=== PATIENT | female | born 1975 | race Caucasian/White ===

== ENCOUNTER 2018-03-09 16:50 | Emergency (ER) | payer OTHER ==
[~2018-03-09] VITALS: Ht 165.1 cm; Wt 81.7 kg
--- NOTE | ~2018-03-09 | EKG ---
[address] [address] ELECTROCARDIOGRAM REPORT Name: TEA MAGALLON Room #: [facility] Eloise#: [id number] Admission: 03/09/18 Attend Phys: Discharge: 03/09/18 Date of : 79 Report #: [id number] THIS REPORT FOR: //name// [facility] ED Test Date: 2018-03-09 Test Time: 17:04:14 Pat Name: TEA MAGALLON Department: Room: Gender: F Sports Medicine Specialist: JUAN MANUEL : 1975 Requested By: Aida Garcia Order Number: [id number] MD: Curtis Zamudio Measurements Intervals [place] Rate: 73 P: 52 NM: 163 QRS: 14 QRSD: 87 T: 30 QT: 390 QTc: 430 Interpretive Statements Sinus rhythm Compared to ECG 06/14/2014 13:41:18 No significant changes Electronically Signed On 03-10-2018 16:54:10 CDT by Curtis Zamudio [email or web address] <ELECTRONICALLY SIGNED> By: Curtis Zamudio MD 03/10/18 1654 1704 1704 MD GAEL Carty
[~2018-03-09 16:50] MED LIST: APAP/CODEINE ELI5 M1 OR; BACTRIM DS TAB1 EACH PO; CIPROFLOXACIN500 M1 PO; FLOVENT HFA 1110 MCG; HYDROCODONE-AP1 EAC6 PO; IBUPROFEN 600600 M1 PO; IBUPROFEN 800800 M1 PO; LISINOPRIL-HCT1 EACH PO; NORCO 5-325 TA1 EACH PO; POTASSIUM20; POTASSIUM20 PO; PYRIDIUM200 MG PO; TRAMADOL 50 MG50 MG PO; VENTAVIS; VITAMIN D250000 UNIT; VITAMIN D250000 UNIT PO; ZPAK PO
[2018-03-09 17:19] LABS: BASOPHILS 0.7 % (0.0-2.0); EOSINOPHILS 0.6 % (0.0-3.0); HEMATOCRIT 39.3 % (37.0-47.0); HEMOGLOBIN 13.4 gm/dL (12.0-15.0); LYMPHOCYTES 35.2 % (24.0-44.0); MCH 28.6 pg (26.0-34.0); MCHC 34.1 g/dL (28.0-37.0); MCV 83.8 fL (80.0-100.0); MONOCYTES 5.3 % (1.0-8.0); PLATELET COUNT 226 thou/uL (150-400); POLYS 58.2 % (36.0-66.0); RBC 4.68 mil/uL (4.20-5.00); RDW 13.8 % (10.5-14.5); WBC 8.6 thou/uL (4.0-11.0)
[2018-03-09 17:30] LABS: ANION GAP 10 mmol/L (7-16); BUN 7 mg/dL (7-18); CALCIUM 9.2 mg/dL (8.5-10.1); CHLORIDE 102 mmol/L (98-107); CO2 26 mmol/L (21-32); CREATININE 0.8 mg/dL (0.6-1.0); GLUCOSE 94 mg/dL (74-106); POTASSIUM 3.1 mmol/L (3.5-5.1); SODIUM 138 mmol/L (136-145)
[2018-03-09 17:38] LABS: ALBUMIN 3.9 g/dL (3.4-5.0); LIPASE 129 U/L (73-393); SGOT 24 U/L (15-37); SGPT 28 U/L (30-65); TOTAL BILIRUBIN 0.3 mg/dL (<0.1-1.0); TROPONIN-I <0.06 ng/mL (<0.06)
[2018-03-09 18:47] LABS: URINE BILIRUBIN NEGATIVE (Negative); URINE BLOOD 1+ (Negative); URINE CLARITY CLEAR; URINE COLOR YELLOW; URINE GLUCOSE-RANDOM* NEGATIVE (Negative); URINE KETONES NEGATIVE (Negative); URINE LEUKOCYTES-REFLEX NEGATIVE (Negative); URINE NITRITE-REFLEX NEGATIVE (Negative); URINE PROTEIN (DIPSTICK) NEGATIVE (Negative); URINE SPECIFIC GRAVITY <= 1.005 (1.005-1.035); URINE UROBILINOGEN 0.2 E.U./dl (0.2-1.0)
[2018-03-09 18:51] LABS: BACTERIA-REFLEX None Seen /HPF (None Seen); CASTS None Seen /LPF (None Seen); CRYSTALS None Seen /LPF (None Seen); SQUAMOUS 0-3 Few /LPF (0-3); URINE RBC 0-2 Rare /HPF (0-2); URINE WBC-REFLEX None Seen /HPF (0-5)
[2018-03-09] MEDS ORDERED: PREDNISONE 20 M20 MG PO (18:58)
[2018-03-09] MEDS ORDERED: AZITHROMYCIN 2250 MG PO (18:58)
[2018-03-09] MEDS ORDERED: LISINOPRIL10 MG PO (19:06)
[2018-03-09 19:14] VITALS: BP 154/88
== END 2018-03-09 19:20 | disposition home or self-care (01) ==
LOC: ER 16:50
PROVIDERS: Nurse Practitioner Family
DX: J18.9 Pneumonia, unspecified organism (principal); R51 Headache; I10 Essential (primary) hypertension

== ENCOUNTER 2019-05-23 19:34 | Emergency (ER) | payer OTHER ==
[~2019-05-23] VITALS: Ht 165.1 cm; Wt 81.7 kg
[~2019-05-23 19:34] MED LIST changes: +AZITHROMYCIN 2250 MG PO; +LISINOPRIL10 MG PO; +PREDNISONE 20 M20 MG PO
[2019-05-23] MEDS ORDERED: PROAIR HFA8.5 GM INH (22:15)
[2019-05-23] MEDS ORDERED: PRINIVIL5 MG PO (22:15)
[2019-05-23] MEDS ORDERED: PREDNISONE 10 M10 MG PO (22:15)
[2019-05-23 22:39] VITALS: BP 158/83
--- NOTE | 2019-05-24 15:13 | EKG ---
[place] [address] [facility] [place] [address] ELECTROCARDIOGRAM REPORT Name: TEA MAGALLON Room #: [facility] DESMOND Navas#: [id number] Admission: 05/23/19 Attend Phys: Discharge: 05/23/19 Date of : 79 Report #: [id number] THIS REPORT FOR: //name// [facility] ED Test Date: 2019-05-23 Test Time: 19:58:50 Pat Name: TEA MAGALLON Department: Room: Gender: F Efficiency Clerk: MERY : 1975 Requested By: Terrence Remy Order Number: [id number] MD: Saúl Roy Measurements Intervals [place] Rate: 92 P: 51 DE: 138 QRS: 21 QRSD: 88 T: 34 QT: 355 QTc: 440 Interpretive Statements Sinus rhythm For R-wave progression Compared to ECG 03/09/2018 17:04:14 No significant changes Electronically Signed On 05-24-2019 15:13:02 [employer]OURCE TEACHER by Saúl Roy [email or web address] <ELECTRONICALLY SIGNED> By: Saúl Roy MD 05/24/19 1513 57 57 Saúl Roy MD /TAMI
== END 2019-05-23 22:41 | disposition home or self-care (01) ==
LOC: ER 19:34
DX: J06.9 Acute upper respiratory infection, unspecified (principal); J40 Bronchitis, not specified as acute or chronic; I10 Essential (primary) hypertension; Z98.890 Other specified postprocedural states